=== PATIENT | male | born 1995 | race Two or more races ===

== ENCOUNTER 2022-06-15 16:20 | Emergency (ER) | payer OTHER | END 2022-06-15 18:20 | disposition home or self-care (01) | LOC: JD.ED 16:20 | DX: S09.90XA Unspecified injury of head, initial encounter (principal); J34.89 Other specified disorders of nose and nasal sinuses; W01.0XXA Fall on same level from slipping, tripping and stumbling without subsequent striking against object, initial encounter; Y92.89 Other specified places as the place of occurrence of the external cause; Y99.0 Civilian activity done for income or pay | CPT/HCPCS: 70450; 70450-26; 70486; 70486-26; 99283 ==